=== PATIENT | male | born 1935 | race Caucasian/White ===

== ENCOUNTER → 2018-03-29 | Outpatient (CLI) | payer OTHER ==
[~2018-03-29] MED LIST: IOPAMIDOL (ISOVUE-300) 100 ML BTL ONE
== END ==
LOC: FIMAGING 18:31
PROVIDERS: ATTEND Internal Medicine Geriatric Medicine
DX: K59.00 Constipation, unspecified (principal); R59.1 Generalized enlarged lymph nodes; R19.07 Generalized intra-abdominal and pelvic swelling, mass and lump; K57.30 Diverticulosis of large intestine without perforation or abscess without bleeding; Z85.828 Personal history of other malignant neoplasm of skin
CPT/HCPCS: 74177; Q9967; 82565-PO